=== PATIENT | female | born 1980 | race Caucasian/White ===

== ENCOUNTER → 2016-08-19 | Outpatient (CLI) | payer BC | LOC: RAD 10:46 | DX: R10.11 Right upper quadrant pain (principal); K80.20 Calculus of gallbladder without cholecystitis without obstruction ==

== ENCOUNTER → 2020-06-08 | Outpatient (CLI) | payer OTHER | LOC: LAB 13:15 | DX: U07.1 COVID-19 (principal) ==

== ENCOUNTER → 2023-04-16 | Outpatient (CLI) | payer BC | LOC: LAB 12:20 | DX: Z00.00 Encounter for general adult medical examination without abnormal findings (principal); Z23 Encounter for immunization; Z13.1 Encounter for screening for diabetes mellitus; Z13.220 Encounter for screening for lipoid disorders; E66.9 Obesity, unspecified; G56.01 Carpal tunnel syndrome, right upper limb; R01.1 Cardiac murmur, unspecified ==

== ENCOUNTER → 2023-05-22 | Outpatient (CLI) | payer BC | LOC: RAD 07:20 | DX: R01.1 Cardiac murmur, unspecified (principal) ==